=== PATIENT | male | born 1940 | race Caucasian/White ===

== ENCOUNTER 2017-09-18 07:24 | Day surgery (SDC) | payer MEDICARE ==
[~2017-09-18 07:24] MED LIST: Acetaminophen TAB* 325 MG PO PRN; Buffered Lidocaine 0.9% SYRIN* 5 ML/SYR SYRINGE INTRADERM ONE
[2017-09-18] MEDS ORDERED: Insulin LISPRO* 1 UNITS UNIT SUBCUT ONE (07:59)
[2017-09-18] MEDS ORDERED: fentaNYL* 50 MCG/ML 2 ML VIAL (100 MCG VIAL) ONE (09:06)
[2017-09-18] MEDS ORDERED: Midazolam* 1 MG/ML 2 ML VIAL (2 MG) ONE (09:06)
--- NOTE | 2017-09-18 10:09 | OP ---
DATE OF OPERATION: 09/18/2017. DATE OF : 1940. SURGEON: Shan Cabrera M.D. PREOPERATIVE DIAGNOSIS: Cataract right eye. POSTOPERATIVE DIAGNOSIS: Cataract right eye. OPERATIVE PROCEDURE: Extracapsular cataract extraction with intraocular lens implant right eye. PROCEDURE: The patient was brought to the operating room after being given 1/2% Alcaine with epineph rine drops in the preoperative area. The eye was prepped and draped in the usual sterile fashion. S terile drape and eyelid speculum were placed. Again, topical 1/2% Alcaine with epinephrine was given . A paracentesis incision was made at the 9 o'clock position with the No.75 blade. Clear cornea inc ision 2.2 x 2.2-mm was created at the 12 o'clock position starting at the anterior limbus using the 2 .2-mm keratome. The anterior chamber was irrigated with 0.4 mL of 1% non-preservative intracameral l idocaine and filled with DisCoVisc. A capsulorrhexis was completed using the cystotome and the Utrat a forceps. Hydrodissection was performed with balanced salt solution. The lens nucleus was removed w ith the Phacoemulsification handpiece without incident. Cortex was removed with the irrigation-aspir ation handpiece. The capsular bag was re-inflated using DisCoVisc and an SN60WF 18.5 implant was ins erted with the shooter. The irrigation-aspiration handpiece was used to remove all residual DisCoVis c. The eye was refilled with balanced salt solution and the wound checked and found to be watertight . Topical Maxitrol drops were given. [id number]/[facility] #: [id number]
[2017-09-18 10:22] VITALS: BP 139/73
[2017-09-18] MEDS ORDERED: Proparacaine 0.5% OPHTH.SOL* 15 ML BTL ONE (12:23)
[2017-09-18] MEDS ORDERED: Lidocaine 1% MPF* 2 ML VIAL ONE (12:23)
[2017-09-18] MEDS ORDERED: Lidocaine 2% EPI 1:200000 MPF*10-20 ML VIAL ONE (12:23)
[2017-09-18] MEDS ORDERED: Ketorolac 0.5% OPHTH (NF) 0.5 % 5 ML BTL ONE (12:23)
[2017-09-18] MEDS ORDERED: Neomycin/Polymy/Dex OPTH.SUSP* MAXITROL 0.1% 5 ML ONE (12:23)
[2017-09-18] MEDS ORDERED: Povidone Iodine 5% OPTH* 30 ML BTL ONE (12:23)
[2017-09-18] MEDS ORDERED: acetaZOLAMIDE TAB* 250 MG ONE (12:23)
[2017-09-18] MEDS ORDERED: Cyclopentolate 1% OPTH.SOL* 2 ML BTL ONE (12:23)
[2017-09-18] MEDS ORDERED: Phenylephrine 2.5% OPTH.SOL* 2 ML BTL ONE (12:23)
== END 2017-09-18 10:19 | disposition home or self-care (01) ==
LOC: OREAST 07:24
PROVIDERS: ATTEND Specialist
DX: H25.813 Combined forms of age-related cataract, bilateral (principal); H35.3132 Nonexudative age-related macular degeneration, bilateral, intermediate dry stage; H50.52 Exophoria; J43.9 Emphysema, unspecified; E78.00 Pure hypercholesterolemia, unspecified; E11.3293 Type 2 diabetes mellitus with mild nonproliferative diabetic retinopathy without macular edema, bilateral
CPT/HCPCS: A9270-GY; J2250; J3010; V2632

== ENCOUNTER 2017-09-25 06:39 | Day surgery (SDC) | payer MEDICARE ==
[2017-09-25] MEDS ORDERED: Midazolam* 1 MG/ML 2 ML VIAL (2 MG) ONE (08:00)
[2017-09-25 08:50] VITALS: BP 141/66
[2017-09-25] MEDS ORDERED: Lidocaine 1% MPF* 2 ML VIAL ONE (13:20)
[2017-09-25] MEDS ORDERED: Neomycin/Polymy/Dex OPTH.SUSP* MAXITROL 0.1% 5 ML ONE (13:20)
[2017-09-25] MEDS ORDERED: Proparacaine 0.5% OPHTH.SOL* 15 ML BTL ONE (13:20)
[2017-09-25] MEDS ORDERED: Phenylephrine 2.5% OPTH.SOL* 2 ML BTL ONE (13:20)
[2017-09-25] MEDS ORDERED: acetaZOLAMIDE TAB* 250 MG ONE (13:20)
[2017-09-25] MEDS ORDERED: Lidocaine 2% EPI 1:200000 MPF*10-20 ML VIAL ONE (13:20)
[2017-09-25] MEDS ORDERED: Povidone Iodine 5% OPTH* 30 ML BTL ONE (13:20)
[2017-09-25] MEDS ORDERED: Cyclopentolate 1% OPTH.SOL* 2 ML BTL ONE (13:20)
[2017-09-25] MEDS ORDERED: Ketorolac 0.5% OPHTH (NF) 0.5 % 5 ML BTL ONE (13:20)
--- NOTE | 2017-09-26 04:06 | OP ---
DATE OF OPERATION: 09/25/17 - [facility] DATE OF : [birth year] SURGEON: Shan Cabrera M.D. PREOPERATIVE DIAGNOSIS: Cataract, left eye. POSTOPERATIVE DIAGNOSIS: Cataract, left eye. OPERATIVE PROCEDURE: Extracapsular cataract extraction with intraocular lens implant, left eye. DESCRIPTION OF PROCEDURE: The patient was brought to the operating room after being given 1/2% Alcaine with epinephrine drops in the preoperative area. The eye was prepped and draped in the usual sterile fashion. Sterile drape and eyelid speculum were placed. Again, topical 1/2% Alcaine with epinephrine was given. A paracentesis incision was made at the 3 o'clock position with the No.75 blade. Clear cornea incision 2.2 x 2.2-mm was created at the 6 o'clock position starting at the anterior limbus using the 2.2-mm keratome. The anterior chamber was irrigated with 0.4 mL of 1% non-preservative intracameral lidocaine and filled with DisCoVisc. A capsulorrhexis was completed using the cystotome and the Utrata forceps. Hydrodissection was performed with balanced salt solution. The lens nucleus was removed with the Phacoemulsification handpiece without incident. Cortex was removed with the irrigation-aspiration handpiece. The capsular bag was re-inflated using DisCoVisc and an [id number] 19 implant was inserted with the shooter. The irrigation-aspiration handpiece was used to remove all residual DisCoVisc. The eye was refilled with balanced salt solution and the wound checked and found to be watertight. Topical Maxitrol drops were given. [id number]/[facility] #: [id number] MTDD
== END 2017-09-25 08:46 | disposition home or self-care (01) ==
LOC: OREAST 06:39
PROVIDERS: ATTEND Specialist
DX: H25.12 Age-related nuclear cataract, left eye (principal); H35.3132 Nonexudative age-related macular degeneration, bilateral, intermediate dry stage; H50.52 Exophoria; Z79.84 Long term (current) use of oral hypoglycemic drugs; E11.3293 Type 2 diabetes mellitus with mild nonproliferative diabetic retinopathy without macular edema, bilateral; J44.9 Chronic obstructive pulmonary disease, unspecified; I10 Essential (primary) hypertension; E61.1 Iron deficiency; E78.1 Pure hyperglyceridemia; E78.5 Hyperlipidemia, unspecified; M79.2 Neuralgia and neuritis, unspecified; Z68.30 Body mass index [BMI] 30.0-30.9, adult; Z85.46 Personal history of malignant neoplasm of prostate; Z85.51 Personal history of malignant neoplasm of bladder; R42 Dizziness and giddiness
CPT/HCPCS: A9270-GY; J2250; V2632

== ENCOUNTER → 2018-06-26 13:48 | Emergency (ER) | payer MEDICARE ==
[~2018-06-26 13:48] MED LIST changes: -Acetaminophen TAB* 325 MG PO PRN; +Albuterol/Ipratropium NEB.SOL* Albuterol 2.5 MG/Ipratropium 0.5 MG 3 ML INH ONE; -Buffered Lidocaine 0.9% SYRIN* 5 ML/SYR SYRINGE INTRADERM ONE; +Dexamethasone IV* 4 MG/ML 1 ML (4 MG) IV SLOW PU ONE
--- NOTE | 2018-06-26 15:28 | ED ---
Shortness of Breath - HPI Summary HPI Summary: Pt is a 77 y/o male who presents to the ED c/o SOB. He was sent here by [facility] PCP Dr. Asif for recurrent bronchitis. Pt has had COPD for the past 3 years, and uses a steroid inhaler. He notes his SOB has been worse the past 3 days, and is having difficulty with expiration. Pt also co wheezing, cough, and fatigue. This morning he also began to have chills and nausea. He denies any fever, CP, or urinary sx. Pt is on 2L O2 NC at home. He is a former smoker. - History of Current Complaint Chief Complaint: EDShortnessOfBreath Time Seen by Provider: 06/26/18 15:07 Hx Obtained From: Patient Onset/Duration: Gradual Onset, Lasting Days - 3, Worse Since Dyspnea At: Rest Aggrevating Factors: Nothing Alleviating Factors: Oxygen Associated Signs & Symptoms: Cough (Nonproductive), Wheezing - Allergy/Home Medications Allergies/Adverse Reactions: Allergies Allergy/AdvReac Type Severity Reaction Status Date / Time bee venom protein (honey bee) Allergy Anaphylatic Verified 06/26/18 14:03 Shock PMH/Surg Hx/FS Hx/Imm Hx Endocrine/Hematology History: Reports: Hx Diabetes - type 2 Cardiovascular History: Reports: Hx Angina, Hx Hypercholesterolemia, Hx Hypertension - on meds Denies: Hx Pacemaker/ICD, Other Cardiovascular Problems/Disorders Respiratory History: Reports: Hx Chronic Bronchitis, Hx Chronic Obstructive Pulmonary Disease (COPD) Denies: Hx Asthma GI History: Reports: Other GI Disorders - HERPATIC NEURALGIA History: Reports: Other Problems/Disorders - Bladder and Prostate cancer, TURP Denies: Hx Renal Disease Sensory History: Reports: Hx Cataracts - serena, Hx Contacts or Glasses Denies: Hx Hearing Aid Opthamlomology History: Reports: Hx Cataracts - serena, Hx Contacts or Glasses Neurological History: Reports: Hx Headaches, Other Neuro Impairments/Disorders - Vertigo Psychiatric History: Denies: Hx Panic Disorder - Cancer History Cancer Type, Location and Year: prostate and bladder - Surgical History Surgery Procedure, Year, and Place: PROSTATE & BLADDER CANCER WITH SURGERY. spinal cord stimulator placed and removed(DR ESTRELLA REVIEWED CT SCAN FROM AND OK'D FOR MRI). tonsillectomy. TUMORS IN BLADDER REMOVED 2-3X Hx Anesthesia Reactions: No Infectious Disease History: No Infectious Disease History: Reports: Hx Shingles - 25 years ago Denies: Traveled Outside the [place] in Last 30 Days - Family History Known Family History: Positive: Other - glaucoma - Social History Alcohol Use: None Hx Substance Use: No Substance Use Type: Reports: None Hx Tobacco Use: Yes Smoking Status (MU): Former Smoker Amount Used/How Often: pack a day for 34 yrs Review of Systems Positive: Chills, Fatigue. Negative: Fever Negative: Chest Pain Positive: Shortness Of Breath, Cough, Other - wheezing Positive: Nausea Genitourinary: Negative All Other Systems Reviewed And Are Negative: Yes Physical Exam - Summary Physical Exam Summary: Appearance: Well appearing, no pain distress Skin: warm, dry, reflects adequate perfusion Head/face: normal Eyes: EOMI, MICHELE ENT: mucous membranes moist Neck: supple, non-tender Respiratory: crackles in right upper lobe, breath sounds diminished Cardiovascular: RRR, pulses symmetrical Abdomen: non-tender, soft Bowel Sounds: present Musculoskeletal: normal, strength/ROM intact Neuro: normal, sensory motor intact, A&Ox3 Triage Information Reviewed: Yes Vital Signs On Initial Exam: Initial Vitals Temp Pulse Resp BP Pulse Ox 97.9 F 99 22 122/100 93 06/26/18 13:57 06/26/18 13:57 06/26/18 13:57 06/26/18 13:57 06/26/18 13:57 Vital Signs Reviewed: Yes Diagnostics - Vital Signs Vital Signs Temp Pulse Resp BP Pulse Ox 06/26/18 13:57 97.9 F 99 22 122/100 93 - Laboratory Result Diagrams: 06/26/18 16:08 06/26/18 16:08 Lab Statement: Any lab studies that have been ordered have been reviewed, and results considered in the medical decision making process. - EKG 15:06 Cardiac Rate: NL - 65 bpm EKG Rhythm: Sinus Rhythm ST Segment: Normal Summary of EKG Findings: Nl axis, nl intervals Course/Dx - Course Course Of Treatment: Nurse's notes reviewed. Patient with a long-standing history of COPD with exacerbation. No fever or evidence of pneumonia on x-ray. He is feeling much better with nebulized breathing treatments and IV steroids. She will continue on steroids outpatient was given antibiotic. He will follow-up with his primary care in the next few days and will inquire about home nebulizer. He does not require any additional oxygen other than his baseline 2 L. - Diagnoses Differential Diagnosis/HQI/PQRI: Positive: CHF, COPD Exacerbation, Pneumonia Provider Diagnoses: Acute exacerbation of chronic obstructive pulmonary disease (COPD) Discharge - Sign-Out/Discharge Documenting (check all that apply): Patient Departure Patient Received Moderate/Deep Sedation with Procedure: No - Discharge Plan Condition: Improved Disposition: HOME Prescriptions: Amoxicillin/Clavulanate TAB* [Augmentin TAB 875*] 875 mg PO BID #14 tab predniSONE TAB* [Deltasone TAB*] 50 mg PO DAILY #4 tab Patient Education Materials: COPD (Chronic Obstructive Pulmonary Disease) (ED) Referrals: Sravan Asif MD [Primary Care Provider] - Additional Instructions: Call your doctor first thing in the morning to schedule prompt follow-up. Also request prescribing of a nebulizer machine and albuterol or DuoNeb. Humidifier at the bedside. Return with increased oxygen need, shortness of breath, fever, worse or other concerns as discussed. - Billing Disposition and Condition Condition: IMPROVED Disposition: Home - Attestation Statements Document Initiated by Luz Elenaibe: Yes Documenting Scribe: Shelley Augustin Provider For Whom Jd is Documenting (Include Credential): Niall Vale MD Scribe Attestation: Shelley Georges scribed for Niall Vale MD on 06/26/18 at 1751. Scribe Documentation Reviewed: Yes Provider Attestation: The documentation as recorded by the Shelley dixon accurately reflects the service I personally performed and the decisions made by , Niall Vale MD Status of Scribe Document: Viewed
[2018-06-26 15:44] LABS: Influenza A Molecular NEGATIVE (Negative); Influenza B Molecular NEGATIVE (Negative)
[2018-06-26 16:19] LABS: ABS Basophils 0.1 10^3/ul (0-0.2); ABS Eosinophils 0.3 10^3/ul (0-0.6); ABS Lymphocytes 1.2 10^3/ul (1.0-4.8); ABS Monocytes 0.8 10^3/ul (0-0.8); ABS Neutrophils 6.8 10^3/ul (1.5-7.7); ABS Nucleated RBC 0 10^3/ul; Eosinophil % 3.1 %; Hematocrit 36 % (42-52); Hemoglobin 11.8 g/dl (14.0-18.0); Lymphocyte % 13.1 %; Mean Corpuscular HGB Conc 33 g/dl (31-36); Mean Corpuscular Hemoglobin 30 pg (27-31); Mean Corpuscular Volume 90 fL (80-94); Mean Platelet Volume 7.9 fL (7.4-10.4); Nucleated Red Blood Cells % 0.1; Platelet Count 227 10^3/ul (150-450); Red Blood Count 3.98 10^6/ul (4.00-5.40); Red Cell Distribution Width 15 % (10.5-15); White Blood Count 9.1 10^3/ul (3.5-10.8)
[2018-06-26 16:28] LABS: INR 0.98 (0.77-1.02)
[2018-06-26 16:40] LABS: Albumin 4.3 g/dL (3.2-5.2); Albumin/Globulin Ratio 1.6 (1-3); BUN/Creatinine Ratio 17.8 (8-20); C Reactive Protein 19.39 mg/L (<8.01); Calcium 9.2 mg/dL (8.6-10.3); EGFR African American 86.9 (>60); EGFR Non-African American 71.8 (>60); Globulin 2.7 g/dL (2-4); Total Bilirubin 0.4 mg/dL (0.2-1.0)
[2018-06-26 16:41] LABS: Potassium 5.4 mmol/L (3.5-5.0)
[2018-06-26 17:42] VITALS: BP 134/61
== END | disposition home or self-care (01) ==
LOC: ED 13:48
DX: J44.9 Chronic obstructive pulmonary disease, unspecified (principal); R05 Cough; R06.2 Wheezing; E11.9 Type 2 diabetes mellitus without complications; I10 Essential (primary) hypertension; Z87.891 Personal history of nicotine dependence; R11.0 Nausea
CPT/HCPCS: 36415; 71046; 80053; 82803; 83605; 83880; 84484; 85025; 85610; 86140; 87040; 93005; 96374; 99283; A9270-GY; J1100

== ENCOUNTER 2020-04-22 12:09 | Inpatient (IN) ==
[2020-04-22 12:58] LABS: ABS Basophils 0.1 10^3/ul (0-0.2); ABS Lymphocytes 0.8 10^3/ul (1.0-4.8); ABS Neutrophils 11.2 10^3/ul (1.5-7.7); Eosinophil % 0.2 %; Hematocrit 39 % (42-52); Hemoglobin 12.7 g/dL (14.0-18.0); Lymphocyte % 5.7 %; Mean Corpuscular HGB Conc 33 g/dL (31-36); Mean Corpuscular Hemoglobin 29 pg (27-31); Mean Corpuscular Volume 90 fL (80-94); Mean Platelet Volume 7.6 fL (7.4-10.4); Platelet Count 274 10^3/uL (150-450); Red Blood Count 4.31 10^6 /uL (4.18-5.48); Red Cell Distribution Width 16 % (10-15); White Blood Count 13.1 10^3/uL (3.5-10.8)
[2020-04-22 13:13] LABS: Albumin 4.1 g/dL (3.2-5.2); Albumin/Globulin Ratio 1.7 (1-3); C Reactive Protein 74.7 mg/L (<8.01); EGFR African American 27.8 (>60); Globulin 2.4 g/dL (2-4); Total Bilirubin 0.4 mg/dL (0.2-1.0); Total Protein 6.5 g/dL (6.4-8.9)
[2020-04-22 13:14] LABS: Troponin I 0.01 ng/mL (<0.03)
[2020-04-22 13:16] LABS: Potassium 5.2 mmol/L (3.5-5.0)
[2020-04-22 13:23] LABS: INR 1.07 (0.82-1.09)
[2020-04-22 13:24] LABS: Activated Partial Thrombo Time 28.2 seconds (26.0-38.0)
[2020-04-22] MEDS ORDERED: NS 0.9% 1000 ml BAG 1,000 ML IV ONE ×2 (13:45→15:01)
[2020-04-22 14:21] LABS: TSH Ultra Thyroid Stim Horm 0.95 mcIU/mL (0.34-5.60)
[2020-04-22 14:48] LABS: Influenza A Molecular Negative (Negative); Influenza B Molecular Negative (Negative)
[2020-04-22] MEDS ORDERED: cefTRIAXone 1 gm/50 mL NS BAG 1 GM/50 ML BAG IV ONE (15:01)
[2020-04-22 15:35] LABS: Urine Appearance Cloudy; Urine Bilirubin Negative (Negative); Urine Blood 3+ (Negative); Urine Color Yellow; Urine Glucose Negative (Negative); Urine Ketones Negative (Negative); Urine Nitrite Positive (Negative); Urine Protein 1+(30 mg/dL) (Negative); Urine Specific Gravity 1.016 (1.010-1.030); Urine Urobilinogen Negative (Negative)
[2020-04-22 15:42] LABS: Urine Bacteria 3+ (Absent); Urine Red Blood Cell Absent (Absent); Urine White Blood Cell 3+(>20/hpf) (Absent)
[2020-04-22] MEDS ORDERED: Metoprolol Tartrate 5 mg VIAL 5 ml VIAL (1 mg/ml) IV ONE (19:19)
[2020-04-22] MEDS ORDERED: Enoxaparin 30 MG/0.3 ML SYR SUBCUT SCH (21:00)
[2020-04-22] MEDS ORDERED: Gabapentin 600 mg TAB (NF) PO SCH (22:00)
[2020-04-22] MEDS ORDERED: Dextrose 50% Syringe 50 ml 25 GM/50 ML SYRINGE IV PUSH PRN (22:48)
[2020-04-22] MEDS: NS 0.9% 1000 ml BAG 1,000 ML IV SCH (23:19)
[2020-04-22] MEDS: Heparin DRIP 25,000 UNITS BAG 25,000 UNITS/500 ML BAG IV SCH (23:33)
[2020-04-22 23:41] LABS: ABS Eosinophils 0.1 10^3/ul (0-0.6); ABS Lymphocytes 0.8 10^3/ul (1.0-4.8); ABS Monocytes 1.1 10^3/ul (0-0.8); ABS Neutrophils 11.3 10^3/ul (1.5-7.7); Eosinophil % 0.5 %; Hematocrit 41 % (42-52); Hemoglobin 13.3 g/dL (14.0-18.0); Lymphocyte % 6.3 %; Mean Corpuscular HGB Conc 33 g/dL (31-36); Mean Corpuscular Hemoglobin 30 pg (27-31); Mean Corpuscular Volume 91 fL (80-94); Mean Platelet Volume 7.8 fL (7.4-10.4); Platelet Count 229 10^3/uL (150-450); Red Blood Count 4.48 10^6 /uL (4.18-5.48); Red Cell Distribution Width 15 % (10-15); White Blood Count 13.3 10^3/uL (3.5-10.8)
[2020-04-22] MEDS ORDERED: Heparin 5000 UNITS/ML 1 mL VIAL IV SCH (23:45)
[2020-04-22 23:57] LABS: EGFR African American 40.2 (>60); EGFR Non-African American 33.2 (>60)
[2020-04-23 00:26] LABS: BUN/Creatinine Ratio 24.5 (8-20); Calcium 8.8 mg/dL (8.6-10.3); EGFR African American 42.2 (>60); EGFR Non-African American 34.9 (>60); Potassium 4.9 mmol/L (3.5-5.0)
[2020-04-23 03:53] LABS: ABS Basophils 0.1 10^3/ul (0-0.2); ABS Eosinophils 0.1 10^3/ul (0-0.6); ABS Lymphocytes 1.4 10^3/ul (1.0-4.8); ABS Monocytes 0.9 10^3/ul (0-0.8); Eosinophil % 0.9 %; Hematocrit 37 % (42-52); Lymphocyte % 12.5 %; Mean Corpuscular HGB Conc 33 g/dL (31-36); Mean Corpuscular Hemoglobin 29 pg (27-31); Mean Corpuscular Volume 90 fL (80-94); Mean Platelet Volume 7.8 fL (7.4-10.4); Platelet Count 200 10^3/uL (150-450); Red Blood Count 4.13 10^6 /uL (4.18-5.48); Red Cell Distribution Width 15 % (10-15); White Blood Count 11.5 10^3/uL (3.5-10.8)
[2020-04-23 04:09] LABS: Albumin 3.5 g/dL (3.2-5.2); Albumin/Globulin Ratio 1.5 (1-3); BUN/Creatinine Ratio 29.5 (8-20); Calcium 8.4 mg/dL (8.6-10.3); EGFR African American 56.5 (>60); EGFR Non-African American 46.7 (>60); Globulin 2.3 g/dL (2-4); Potassium 4.7 mmol/L (3.5-5.0); Total Bilirubin 0.6 mg/dL (0.2-1.0); Total Protein 5.8 g/dL (6.4-8.9)
[2020-04-23] MEDS: Mometasone/Formoter 200/5 MDI INH SCH ×2 (09:18→19:24)
[2020-04-23] MEDS: Aspirin EC 81 mg TAB.EC (enteric coated) PO SCH (10:02)
[2020-04-23] MEDS: Cefepime 2 GM in Dextrose 2 GM/50 ML BAG IV SCH (12:22)
[2020-04-23] MEDS: SPIRIVA Respimat (tiotropium) 2.5 mcg/inh Inhaler INH SCH (12:39)
[2020-04-23] MEDS ORDERED: NS 0.9% 500 ml BAG 500 ML IV ONE (13:49)
[2020-04-23] MEDS: NS 0.9% 1000 ml BAG 1,000 ML IV SCH (14:06)
[2020-04-23] MEDS ORDERED: cefTRIAXone 1 gm/50 mL NS BAG 1 GM/50 ML BAG IVPB SCH (15:30)
[2020-04-23] MEDS: Heparin DRIP 25,000 UNITS BAG 25,000 UNITS/500 ML BAG IV SCH (22:52)
[2020-04-23] MEDS ORDERED: Benzocaine/Menthol LOZ PO PRN (23:48)
[2020-04-24] MEDS: NS 0.9% 1000 ml BAG 1,000 ML IV SCH (03:03)
[2020-04-24 06:52] LABS: ABS Basophils 0.1 10^3/ul (0-0.2); ABS Eosinophils 0.4 10^3/ul (0-0.6); ABS Lymphocytes 1.4 10^3/ul (1.0-4.8); ABS Monocytes 0.9 10^3/ul (0-0.8); ABS Neutrophils 5.7 10^3/ul (1.5-7.7); Eosinophil % 4.3 %; Hematocrit 35 % (42-52); Hemoglobin 11.6 g/dL (14.0-18.0); Lymphocyte % 16.4 %; Mean Corpuscular HGB Conc 34 g/dL (31-36); Mean Corpuscular Hemoglobin 30 pg (27-31); Mean Corpuscular Volume 89 fL (80-94); Mean Platelet Volume 7.9 fL (7.4-10.4); Platelet Count 204 10^3/uL (150-450); Red Blood Count 3.91 10^6 /uL (4.18-5.48); Red Cell Distribution Width 15 % (10-15); White Blood Count 8.4 10^3/uL (3.5-10.8)
[2020-04-24 07:11] LABS: BUN/Creatinine Ratio 24.8 (8-20); Calcium 8.6 mg/dL (8.6-10.3); EGFR African American 86.4 (>60); EGFR Non-African American 71.4 (>60); Potassium 4.2 mmol/L (3.5-5.0)
[2020-04-24] MEDS: Aspirin EC 81 mg TAB.EC (enteric coated) PO SCH (07:39)
[2020-04-24] MEDS: Mometasone/Formoter 200/5 MDI INH SCH ×2 (08:07→20:16)
[2020-04-24] MEDS: SPIRIVA Respimat (tiotropium) 2.5 mcg/inh Inhaler INH SCH (08:07)
[2020-04-24] MEDS ORDERED: Perflutren Lipid Microsphere 3 ML VIAL ONE (08:48)
[2020-04-24] MEDS: Cefepime 2 GM in Dextrose 2 GM/50 ML BAG IV SCH ×2 (12:08)
[2020-04-24] MEDS ORDERED: Iodixanol (CONTRAST) 320 MG/ML 100 ML SDV IV ONE (12:57)
[2020-04-24] MEDS: Enoxaparin 80 MG/0.8 ML SYR SUBCUT SCH (18:33)
[2020-04-25] MEDS: Enoxaparin 80 MG/0.8 ML SYR SUBCUT SCH ×2 (05:18→17:21)
[2020-04-25 05:26] LABS: ABS Basophils 0.1 10^3/ul (0-0.2); ABS Eosinophils 0.4 10^3/ul (0-0.6); ABS Lymphocytes 1.4 10^3/ul (1.0-4.8); ABS Monocytes 0.7 10^3/ul (0-0.8); ABS Neutrophils 4.7 10^3/ul (1.5-7.7); Hematocrit 35 % (42-52); Hemoglobin 11.9 g/dL (14.0-18.0); Lymphocyte % 18.7 %; Mean Corpuscular HGB Conc 34 g/dL (31-36); Mean Corpuscular Hemoglobin 30 pg (27-31); Mean Corpuscular Volume 87 fL (80-94); Mean Platelet Volume 8.1 fL (7.4-10.4); Platelet Count 240 10^3/uL (150-450); Red Blood Count 4.03 10^6 /uL (4.18-5.48); Red Cell Distribution Width 15 % (10-15); White Blood Count 7.3 10^3/uL (3.5-10.8)
[2020-04-25] MEDS: cefTRIAXone 1 gm/50 mL NS BAG 1 GM/50 ML BAG IVPB SCH (08:20)
[2020-04-25] MEDS: Mometasone/Formoter 200/5 MDI INH SCH ×2 (08:26→19:50)
[2020-04-25] MEDS: SPIRIVA Respimat (tiotropium) 2.5 mcg/inh Inhaler INH SCH (08:27)
[2020-04-26] MEDS: Enoxaparin 80 MG/0.8 ML SYR SUBCUT SCH (05:54)
[2020-04-26] MEDS: cefTRIAXone 1 gm/50 mL NS BAG 1 GM/50 ML BAG IVPB SCH (08:01)
[2020-04-26] MEDS: SPIRIVA Respimat (tiotropium) 2.5 mcg/inh Inhaler INH SCH (08:16)
[2020-04-26] MEDS: Mometasone/Formoter 200/5 MDI INH SCH (08:17)
[2020-04-26 11:25] VITALS: BP 140/58
== END 2020-04-26 15:15 | disposition home or self-care (01) | DRG 871 ==
LOC: ED 12:09 → MEDTELE 22:15
PROVIDERS: ADMIT Hospitalist; ATTEND Internal Medicine

== ENCOUNTER 2020-12-06 12:41 | Inpatient (IN) ==
[2020-12-06 13:16] LABS: Hematocrit 41 % (42-52); Hemoglobin 13.5 g/dL (14.0-18.0); Mean Corpuscular HGB Conc 33 g/dL (31-36); Mean Corpuscular Hemoglobin 29 pg (27-31); Mean Corpuscular Volume 89 fL (80-94); Mean Platelet Volume 7.7 fL (7.4-10.4); Platelet Count 273 10^3/uL (150-450); Red Blood Count 4.61 10^6 /uL (4.18-5.48); Red Cell Distribution Width 15 % (10-15); White Blood Count 14.6 10^3/uL (3.5-10.8)
[2020-12-06] MEDS ORDERED: NS 0.9% 1000 ml BAG 1,000 ML IV ONE (13:16)
[2020-12-06 13:29] LABS: INR 1.15 (0.86-1.15)
[2020-12-06 13:35] LABS: Troponin I 0.01 ng/mL (<0.03)
[2020-12-06 13:37] LABS: Albumin/Globulin Ratio 1.1 (1-3); C Reactive Protein 188.46 mg/L (<8.01); Calcium 9.6 mg/dL (8.6-10.3); EGFR African American 72.8 (>60); EGFR Non-African American 60.1 (>60); Globulin 3.5 g/dL (2-4); Magnesium 1.8 mg/dL (1.9-2.7); Potassium 4.4 mmol/L (3.5-5.0); Total Bilirubin 0.5 mg/dL (0.2-1.0); Total Protein 7.5 g/dL (6.4-8.9)
[2020-12-06 13:49] LABS: ABS Basophils 0.1 10^3/ul (0-0.2); ABS Eosinophils 0.2 10^3/ul (0-0.6); ABS Monocytes 0.9 10^3/ul (0-0.8); ABS Neutrophils 12.4 10^3/ul (1.5-7.7); Eosinophil % 1.2 %; Lymphocyte % 7.1 %
[2020-12-06] MEDS ORDERED: Magnesium Sulfate 2 gm BAG 2 GM/50 ML BAG IVPB ONE (13:54)
[2020-12-06] MEDS ORDERED: Piperacillin/Tazobac ADVAN 3.375 GM in NS 0.9% 100 ml BAG 100 ML IV ONE (13:59)
[2020-12-06 14:12] LABS: Urine Appearance Turbid; Urine Bilirubin Negative (Negative); Urine Blood 2+ (Negative); Urine Color Yellow; Urine Glucose Negative (Negative); Urine Ketones Negative (Negative); Urine Nitrite Positive (Negative); Urine Protein 2+(100 mg/dL) (Negative); Urine Specific Gravity 1.014 (1.002-1.030); Urine Urobilinogen Negative (Negative)
[2020-12-06 14:26] LABS: Urine Bacteria Absent (Absent); Urine Red Blood Cell 3+(>10/hpf) (Absent); Urine Squamous Epithelial Cell Present (Absent); Urine White Blood Cell 3+(>20/hpf) (Absent)
[2020-12-06 14:34] LABS: TSH Ultra Thyroid Stim Horm 0.77 mcIU/mL (0.34-5.60)
[2020-12-06] MEDS ORDERED: Piperacillin/Tazobac 3.375 GM BAG ONE (14:41)
[2020-12-06] MEDS ORDERED: NS 0.9% IV ONE (15:16)
[2020-12-06] MEDS ORDERED: Ondansetron 4 mg VIAL 2 MG/ML 2 ml VIAL IV PRN (16:00)
[2020-12-06] MEDS ORDERED: Magnesium Hydroxide LIQ 30 ML UDC PO PRN (16:00)
[2020-12-06] MEDS ORDERED: Albuterol HFA INHALER 8 gm MDI INH PRN (16:02)
[2020-12-06] MEDS ORDERED: Albuterol 2.5mg/3 ml (0.083%) NEB.SOLN INH PRN (16:02)
[2020-12-06] MEDS ORDERED: Dextrose 50% Syringe 50 ml 25 GM/50 ML SYRINGE IV PUSH PRN (16:04)
[2020-12-06] MEDS: cefTRIAXone 1 gm/50 mL NS BAG 1 GM/50 ML BAG IVPB SCH (23:53)
[2020-12-07 05:46] LABS: ABS Basophils 0.1 10^3/ul (0-0.2); ABS Eosinophils 0.3 10^3/ul (0-0.6); ABS Lymphocytes 1.5 10^3/ul (1.0-4.8); ABS Monocytes 0.6 10^3/ul (0-0.8); ABS Neutrophils 5.5 10^3/ul (1.5-7.7); Eosinophil % 4.2 %; Hematocrit 33 % (42-52); Hemoglobin 11.1 g/dL (14.0-18.0); Lymphocyte % 19.1 %; Mean Corpuscular HGB Conc 34 g/dL (31-36); Mean Corpuscular Hemoglobin 30 pg (27-31); Mean Corpuscular Volume 88 fL (80-94); Mean Platelet Volume 7.4 fL (7.4-10.4); Platelet Count 240 10^3/uL (150-450); Red Blood Count 3.73 10^6 /uL (4.18-5.48); Red Cell Distribution Width 15 % (10-15)
[2020-12-07 06:04] LABS: Calcium 8.6 mg/dL (8.6-10.3); EGFR African American 88.2 (>60); EGFR Non-African American 72.9 (>60); Potassium 4.3 mmol/L (3.5-5.0)
[2020-12-07] MEDS: Mometasone/Formoter 200/5 MDI INH SCH ×2 (10:14→21:59)
[2020-12-07] MEDS: cefTRIAXone 1 gm/50 mL NS BAG 1 GM/50 ML BAG IVPB SCH (21:20)
[2020-12-08] MEDS: Mometasone/Formoter 200/5 MDI INH SCH ×2 (08:09→20:05)
[2020-12-08] MEDS ORDERED: Piperacillin/Tazobac ADVAN 3.375 GM in NS 0.9% 100 ml BAG 100 ML IV ONE (09:18)
[2020-12-08] MEDS ORDERED: Zosyn per Pharmacy NOTE FOLLOW UP SCH (10:00)
[2020-12-08] MEDS: ZOSYN 3.375 GM Q8H per EXTENDED INFUSION IV SCH ×2 (13:58→23:11)
[2020-12-09] MEDS: ZOSYN 3.375 GM Q8H per EXTENDED INFUSION IV SCH ×2 (06:27→14:29)
[2020-12-09] MEDS: Mometasone/Formoter 200/5 MDI INH SCH (10:05)
[2020-12-09 16:45] VITALS: BP 141/66
== END 2020-12-09 16:40 | disposition home or self-care (01) | DRG 872 ==
LOC: MED 12:41 → ED 12:41 → MED 17:47
PROVIDERS: ADMIT Hospitalist; ATTEND Internal Medicine

== ENCOUNTER 2020-12-14 11:31 | Inpatient (IN) ==
[2020-12-14] MEDS ORDERED: NS 0.9% 1000 ml BAG 1,000 ML IV ONE ×3 (11:38→13:43)
[2020-12-14 12:00] LABS: ABS Basophils 0.1 10^3/ul (0-0.2); ABS Eosinophils 0.5 10^3/ul (0-0.6); ABS Lymphocytes 1.3 10^3/ul (1.0-4.8); ABS Monocytes 0.6 10^3/ul (0-0.8); ABS Neutrophils 8.3 10^3/ul (1.5-7.7); Hematocrit 41 % (42-52); Hemoglobin 13.4 g/dL (14.0-18.0); Lymphocyte % 12.2 %; Mean Corpuscular HGB Conc 33 g/dL (31-36); Mean Corpuscular Hemoglobin 29 pg (27-31); Mean Corpuscular Volume 88 fL (80-94); Mean Platelet Volume 7.3 fL (7.4-10.4); Platelet Count 452 10^3/uL (150-450); Red Blood Count 4.62 10^6 /uL (4.18-5.48); Red Cell Distribution Width 15 % (10-15); White Blood Count 10.9 10^3/uL (3.5-10.8)
[2020-12-14 12:18] LABS: Albumin 3.9 g/dL (3.2-5.2); Albumin/Globulin Ratio 1.2 (1-3); Calcium 9.2 mg/dL (8.6-10.3); EGFR African American 32.7 (>60); Globulin 3.3 g/dL (2-4); Potassium 4.9 mmol/L (3.5-5.0); Total Bilirubin 0.3 mg/dL (0.2-1.0); Total Protein 7.2 g/dL (6.4-8.9)
[2020-12-14 12:19] LABS: Activated Partial Thrombo Time 22.3 seconds (26.0-38.0); INR 1.1 (0.86-1.15)
[2020-12-14 12:31] LABS: Influenza A Molecular Negative (Negative); Influenza B Molecular Negative (Negative)
[2020-12-14] MEDS ORDERED: Piperacillin/Tazobac ADVAN 3.375 GM in NS 0.9% 100 ml BAG 100 ML IV ONE (12:32)
[2020-12-14 13:16] LABS: Urine Appearance Cloudy; Urine Bilirubin Negative (Negative); Urine Blood Negative (Negative); Urine Color Yellow; Urine Glucose Negative (Negative); Urine Ketones Negative (Negative); Urine Nitrite Negative (Negative); Urine Protein 1+(30 mg/dL) (Negative); Urine Urobilinogen Negative (Negative)
[2020-12-14 13:23] LABS: Urine Bacteria Absent (Absent); Urine Red Blood Cell Trace(0-2/hpf) (Absent); Urine Squamous Epithelial Cell Present (Absent); Urine White Blood Cell 1+(6-10/hpf) (Absent)
[2020-12-14 14:37] LABS: C Reactive Protein 56.42 mg/L (<8.01)
[2020-12-14] MEDS ORDERED: Dextrose 50% Syringe 50 ml 25 GM/50 ML SYRINGE IV PUSH PRN (15:51)
[2020-12-14] MEDS ORDERED: Albuterol 2.5mg/3 ml (0.083%) NEB.SOLN INH PRN (16:14)
[2020-12-14] MEDS ORDERED: Meropenem 1 GM PREMIX 1 GM/50 ML BAG IV ONE (16:30)
[2020-12-14] MEDS: Mometasone/Formoter 200/5 MDI INH SCH (19:39)
[2020-12-14] MEDS: Meropenem 1 GM PREMIX(*) 1 GM/50 ML BAG IV SCH (21:15)
[2020-12-15 06:50] LABS: Calcium 8.3 mg/dL (8.6-10.3); EGFR African American 75.7 (>60); EGFR Non-African American 62.6 (>60); Potassium 4.5 mmol/L (3.5-5.0)
[2020-12-15 06:59] LABS: ABS Eosinophils 0.5 10^3/ul (0-0.6); ABS Lymphocytes 2.1 10^3/ul (1.0-4.8); ABS Monocytes 0.6 10^3/ul (0-0.8); Eosinophil % 7.1 %; Hematocrit 35 % (42-52); Hemoglobin 11.5 g/dL (14.0-18.0); Mean Corpuscular HGB Conc 33 g/dL (31-36); Mean Corpuscular Hemoglobin 29 pg (27-31); Mean Corpuscular Volume 90 fL (80-94); Mean Platelet Volume 7.2 fL (7.4-10.4); Platelet Count 359 10^3/uL (150-450); Red Blood Count 3.94 10^6 /uL (4.18-5.48); Red Cell Distribution Width 15 % (10-15); White Blood Count 7.3 10^3/uL (3.5-10.8)
[2020-12-15] MEDS: Aspirin EC 81 mg TAB.EC (enteric coated) PO SCH (08:51)
[2020-12-15] MEDS: Meropenem 1 GM PREMIX(*) 1 GM/50 ML BAG IV SCH (08:51)
[2020-12-15] MEDS: NFT: ICOSAPENT ETHYL 1 GM CAPSULE (NF) PO SCH ×2 (08:53→17:04)
[2020-12-15] MEDS ORDERED: Fluticasone/Vilanterol MDI(NF) 200/25 MDI INH SCH (09:00)
[2020-12-15] MEDS ORDERED: Zosyn per Pharmacy NOTE FOLLOW UP SCH (10:00)
[2020-12-15] MEDS ORDERED: Piperacillin/Tazobac ADVAN 3.375 GM in NS 0.9% 100 ml BAG 100 ML IV ONE (10:30)
[2020-12-15] MEDS: Mometasone/Formoter 200/5 MDI INH SCH ×2 (10:40→19:30)
[2020-12-15] MEDS ORDERED: ZOSYN 3.375 GM x ONE DOSE over 30 miuntes IV (17:00)
[2020-12-15] MEDS: Enoxaparin 40 MG/0.4 ML SYR SUBCUT SCH (21:27)
[2020-12-15] MEDS: ZOSYN 3.375 GM Q8H per EXTENDED INFUSION IV SCH (21:28)
[2020-12-16] MEDS: Mometasone/Formoter 200/5 MDI INH SCH ×2 (07:24→22:15)
[2020-12-16] MEDS: ZOSYN 3.375 GM Q8H per EXTENDED INFUSION IV SCH (07:46)
[2020-12-16] MEDS: NFT: ICOSAPENT ETHYL 1 GM CAPSULE (NF) PO SCH ×2 (07:46→16:22)
[2020-12-16] MEDS: Aspirin EC 81 mg TAB.EC (enteric coated) PO SCH (09:20)
[2020-12-16] MEDS: Amoxicillin/Clavul 875/125 TAB (Augmentin 875 tab) PO SCH ×2 (09:21→20:56)
[2020-12-16] MEDS: Enoxaparin 40 MG/0.4 ML SYR SUBCUT SCH (20:57)
[2020-12-17] MEDS: NFT: ICOSAPENT ETHYL 1 GM CAPSULE (NF) PO SCH ×2 (07:51→16:37)
[2020-12-17] MEDS: Amoxicillin/Clavul 875/125 TAB (Augmentin 875 tab) PO SCH ×2 (08:02→20:10)
[2020-12-17] MEDS: Aspirin EC 81 mg TAB.EC (enteric coated) PO SCH (08:03)
[2020-12-17 08:44] LABS: Calcium 8.7 mg/dL (8.6-10.3); EGFR African American 89.3 (>60); EGFR Non-African American 73.8 (>60); Magnesium 1.5 mg/dL (1.9-2.7); Potassium 4.4 mmol/L (3.5-5.0)
[2020-12-17 08:47] LABS: ABS Eosinophils 0.7 10^3/ul (0-0.6); ABS Lymphocytes 1.6 10^3/ul (1.0-4.8); ABS Monocytes 0.6 10^3/ul (0-0.8); ABS Neutrophils 9.9 10^3/ul (1.5-7.7); Eosinophil % 5.5 %; Hematocrit 40 % (42-52); Hemoglobin 13.2 g/dL (14.0-18.0); Lymphocyte % 12.6 %; Mean Corpuscular HGB Conc 33 g/dL (31-36); Mean Corpuscular Hemoglobin 29 pg (27-31); Mean Corpuscular Volume 88 fL (80-94); Mean Platelet Volume 7.1 fL (7.4-10.4); Nucleated Red Blood Cells % 0.1; Platelet Count 377 10^3/uL (150-450); Red Blood Count 4.54 10^6 /uL (4.18-5.48); Red Cell Distribution Width 15 % (10-15); White Blood Count 12.8 10^3/uL (3.5-10.8)
[2020-12-17] MEDS ORDERED: DULAGLUTIDE 1.5 MG/0.5 ML SUBCUT SCH (10:00)
[2020-12-17] MEDS ORDERED: Magnesium Sulfate IV 3 GM in NS 0.9% 100 ml BAG 100 ML IVPB ONE (10:30)
[2020-12-17] MEDS: Mometasone/Formoter 200/5 MDI INH SCH ×2 (14:00→20:48)
[2020-12-17] MEDS: Enoxaparin 40 MG/0.4 ML SYR SUBCUT SCH (20:09)
[2020-12-18] MEDS: Mometasone/Formoter 200/5 MDI INH SCH ×2 (07:54→19:19)
[2020-12-18] MEDS: Amoxicillin/Clavul 875/125 TAB (Augmentin 875 tab) PO SCH (08:27)
[2020-12-18] MEDS: Aspirin EC 81 mg TAB.EC (enteric coated) PO SCH (08:27)
[2020-12-18] MEDS: NFT: ICOSAPENT ETHYL 1 GM CAPSULE (NF) PO SCH (08:30)
[2020-12-18] MEDS: Albuterol HFA INHALER 8 gm MDI INH PRN ×2 (14:42→19:19)
[2020-12-18] MEDS: Enoxaparin 40 MG/0.4 ML SYR SUBCUT SCH (21:55)
[2020-12-19 06:32] LABS: ABS Basophils 0.1 10^3/ul (0-0.2); ABS Eosinophils 1.3 10^3/ul (0-0.6); ABS Lymphocytes 1.8 10^3/ul (1.0-4.8); ABS Monocytes 0.9 10^3/ul (0-0.8); ABS Neutrophils 12.6 10^3/ul (1.5-7.7); Hematocrit 36 % (42-52); Hemoglobin 11.5 g/dL (14.0-18.0); Lymphocyte % 10.9 %; Mean Corpuscular HGB Conc 32 g/dL (31-36); Mean Corpuscular Hemoglobin 29 pg (27-31); Mean Corpuscular Volume 89 fL (80-94); Mean Platelet Volume 7.7 fL (7.4-10.4); Nucleated Red Blood Cells % 0.1; Platelet Count 395 10^3/uL (150-450); Red Blood Count 4.01 10^6 /uL (4.18-5.48); Red Cell Distribution Width 15 % (10-15); White Blood Count 16.7 10^3/uL (3.5-10.8)
[2020-12-19 06:47] LABS: Calcium 8.8 mg/dL (8.6-10.3); EGFR African American 81.5 (>60); EGFR Non-African American 67.4 (>60); Magnesium 1.6 mg/dL (1.9-2.7); Potassium 4.6 mmol/L (3.5-5.0)
[2020-12-19] MEDS ORDERED: Magnesium Sulfate 2 gm BAG 2 GM/50 ML BAG IVPB ONE (07:37)
[2020-12-19] MEDS ORDERED: Lactated Ringers 1000 ml BAG 1,000 ML IV ONE (07:37)
[2020-12-19] MEDS: Aspirin EC 81 mg TAB.EC (enteric coated) PO SCH (08:38)
[2020-12-19] MEDS: Mometasone/Formoter 200/5 MDI INH SCH ×2 (09:12→19:25)
[2020-12-19] MEDS: Enoxaparin 40 MG/0.4 ML SYR SUBCUT SCH (20:18)
[2020-12-19 21:19] LABS: Urine Appearance Clear; Urine Bilirubin Negative (Negative); Urine Blood Negative (Negative); Urine Color Yellow; Urine Glucose Negative (Negative); Urine Ketones Negative (Negative); Urine Nitrite Negative (Negative); Urine Protein Negative (Negative); Urine Specific Gravity 1.016 (1.002-1.030); Urine Urobilinogen Negative (Negative)
[2020-12-20 07:51] VITALS: BP 123/59
[2020-12-20] MEDS: Albuterol HFA INHALER 8 gm MDI INH PRN (08:09)
[2020-12-20] MEDS: Mometasone/Formoter 200/5 MDI INH SCH (08:09)
[2020-12-20] MEDS: Aspirin EC 81 mg TAB.EC (enteric coated) PO SCH (08:46)
[2020-12-20 08:54] LABS: ABS Basophils 0.1 10^3/ul (0-0.2); ABS Eosinophils 1.6 10^3/ul (0-0.6); ABS Lymphocytes 1.9 10^3/ul (1.0-4.8); ABS Monocytes 0.9 10^3/ul (0-0.8); Hematocrit 34 % (42-52); Hemoglobin 11.4 g/dL (14.0-18.0); Lymphocyte % 16.7 %; Mean Corpuscular HGB Conc 33 g/dL (31-36); Mean Corpuscular Hemoglobin 29 pg (27-31); Mean Corpuscular Volume 88 fL (80-94); Mean Platelet Volume 7.5 fL (7.4-10.4); Platelet Count 367 10^3/uL (150-450); Red Blood Count 3.93 10^6 /uL (4.18-5.48); Red Cell Distribution Width 16 % (10-15); White Blood Count 11.6 10^3/uL (3.5-10.8)
[2020-12-20 09:12] LABS: Calcium 8.9 mg/dL (8.6-10.3); EGFR African American 87.2 (>60); EGFR Non-African American 72.1 (>60); Magnesium 1.7 mg/dL (1.9-2.7); Potassium 4.4 mmol/L (3.5-5.0)
[2020-12-20] MEDS ORDERED: Magnesium Sulfate 2 gm BAG 2 GM/50 ML BAG IVPB ONE (09:19)
== END 2020-12-20 11:35 | DRG 683 ==
LOC: ED 11:31 → MED 15:35
PROVIDERS: ADMIT Internal Medicine; ATTEND Student in an Organized Health Care Education/Training Program

== ENCOUNTER 2021-01-02 11:55 | Inpatient (IN) ==
[2021-01-02] MEDS ORDERED: Lactated Ringers 1000 ml BAG 1,000 ML IV ONE ×2 (12:45→14:36)
[2021-01-02 12:59] LABS: ABS Basophils 0.1 10^3/ul (0-0.2); ABS Eosinophils 0.1 10^3/ul (0-0.6); ABS Lymphocytes 0.7 10^3/ul (1.0-4.8); ABS Monocytes 1.2 10^3/ul (0-0.8); ABS Neutrophils 8.8 10^3/ul (1.5-7.7); Hematocrit 35 % (42-52); Hemoglobin 11.4 g/dL (14.0-18.0); Lymphocyte % 6.1 %; Mean Corpuscular HGB Conc 33 g/dL (31-36); Mean Corpuscular Hemoglobin 28 pg (27-31); Mean Corpuscular Volume 86 fL (80-94); Mean Platelet Volume 7.2 fL (7.4-10.4); Platelet Count 426 10^3/uL (150-450); Red Blood Count 4.01 10^6 /uL (4.18-5.48); Red Cell Distribution Width 15 % (10-15); White Blood Count 10.8 10^3/uL (3.5-10.8)
[2021-01-02 13:11] LABS: Activated Partial Thrombo Time 31.2 seconds (26.0-38.0); INR 1.25 (0.86-1.15)
[2021-01-02 13:18] LABS: Troponin I 0.01 ng/mL (<0.03)
[2021-01-02 13:28] LABS: Albumin/Globulin Ratio 1.1 (1-3); C Reactive Protein 247.64 mg/L (<8.01); Calcium 9.3 mg/dL (8.6-10.3); EGFR African American 57.7 (>60); EGFR Non-African American 47.7 (>60); Globulin 3.7 g/dL (2-4); Total Bilirubin 0.4 mg/dL (0.2-1.0); Total Protein 7.7 g/dL (6.4-8.9)
[2021-01-02 14:46] LABS: Urine Bacteria Absent (Absent); Urine Red Blood Cell 3+(>10/hpf) (Absent); Urine Squamous Epithelial Cell Present (Absent); Urine White Blood Cell 3+(>20/hpf) (Absent)
[2021-01-02 14:47] LABS: Urine Appearance Cloudy; Urine Bilirubin Negative (Negative); Urine Blood 1+ (Negative); Urine Color Yellow; Urine Glucose Negative (Negative); Urine Ketones Negative (Negative); Urine Nitrite Negative (Negative); Urine Protein 1+(30 mg/dL) (Negative); Urine Specific Gravity 1.014 (1.002-1.030); Urine Urobilinogen Negative (Negative)
[2021-01-02 15:46] LABS: Urine Appearance Cloudy; Urine Bilirubin Negative (Negative); Urine Blood 2+ (Negative); Urine Color Yellow; Urine Glucose Negative (Negative); Urine Ketones Negative (Negative); Urine Nitrite Negative (Negative); Urine Protein 1+(30 mg/dL) (Negative); Urine Specific Gravity 1.013 (1.002-1.030); Urine Urobilinogen Negative (Negative)
[2021-01-02 15:50] LABS: Urine Bacteria Absent (Absent); Urine Red Blood Cell 3+(>10/hpf) (Absent); Urine White Blood Cell 3+(>20/hpf) (Absent)
[2021-01-02] MEDS ORDERED: Piperacillin/Tazobac ADVAN 3.375 GM in NS 0.9% 100 ml BAG 100 ML IV ONE (15:53)
[2021-01-02 17:34] LABS: Rapid COVID-19 Molecular Undetected (Undetected)
[2021-01-02] MEDS ORDERED: Ondansetron 4 mg VIAL 2 MG/ML 2 ml VIAL IV PRN (19:55)
[2021-01-02] MEDS ORDERED: Zosyn per Pharmacy NOTE FOLLOW UP SCH (20:00)
[2021-01-02] MEDS ORDERED: Dextrose 50% Syringe 50 ml 25 GM/50 ML SYRINGE IV PUSH PRN (20:06)
[2021-01-02] MEDS ORDERED: NS 0.9% 250 ml 250 ML IV ONE (20:44)
[2021-01-02] MEDS ORDERED: Iodixanol (CONTRAST) 320 MG/ML 100 ML SDV IV ONE (20:54)
[2021-01-02] MEDS ORDERED: ZOSYN 3.375 GM Q8H per EXTENDED INFUSION IV ONE (21:00)
[2021-01-02] MEDS: NS 0.9% 1000 ml BAG 1,000 ML IV SCH (23:01)
[2021-01-03 00:26] LABS: Rapid COVID-19 Molecular Undetected (Undetected)
[2021-01-03] MEDS: DULoxetine DR 30 mg CAP PO SCH ×2 (01:44→10:31)
[2021-01-03] MEDS: NS 0.9% 1000 ml BAG 1,000 ML IV SCH ×2 (01:44→14:39)
[2021-01-03] MEDS: ZOSYN 3.375 GM Q8H per EXTENDED INFUSION IV SCH ×3 (06:27→22:12)
[2021-01-03 06:49] LABS: ABS Eosinophils 0.2 10^3/ul (0-0.6); ABS Lymphocytes 0.7 10^3/ul (1.0-4.8); ABS Monocytes 0.9 10^3/ul (0-0.8); ABS Neutrophils 5.9 10^3/ul (1.5-7.7); Eosinophil % 2.9 %; Hematocrit 31 % (42-52); Hemoglobin 10.3 g/dL (14.0-18.0); Lymphocyte % 8.5 %; Mean Corpuscular HGB Conc 33 g/dL (31-36); Mean Corpuscular Hemoglobin 28 pg (27-31); Mean Corpuscular Volume 86 fL (80-94); Mean Platelet Volume 7.1 fL (7.4-10.4); Platelet Count 316 10^3/uL (150-450); Red Blood Count 3.64 10^6 /uL (4.18-5.48); Red Cell Distribution Width 15 % (10-15); White Blood Count 7.7 10^3/uL (3.5-10.8)
[2021-01-03 07:09] LABS: Albumin 3.5 g/dL (3.2-5.2); Albumin/Globulin Ratio 1.1 (1-3); Calcium 8.7 mg/dL (8.6-10.3); EGFR African American 83.4 (>60); EGFR Non-African American 68.9 (>60); Globulin 3.1 g/dL (2-4); Potassium 4.5 mmol/L (3.5-5.0); Total Bilirubin 0.3 mg/dL (0.2-1.0); Total Protein 6.6 g/dL (6.4-8.9)
[2021-01-03] MEDS: Mometasone/Formoter 200/5 MDI INH SCH ×2 (08:11→19:07)
[2021-01-03] MEDS ORDERED: Mometasone/Formoter 200/5 MDI INH SCH (09:00)
[2021-01-04] MEDS: NS 0.9% 1000 ml BAG 1,000 ML IV SCH ×2 (00:18→19:46)
[2021-01-04 05:42] LABS: ABS Eosinophils 0.7 10^3/ul (0-0.6); ABS Lymphocytes 1.3 10^3/ul (1.0-4.8); ABS Monocytes 0.8 10^3/ul (0-0.8); ABS Neutrophils 3.6 10^3/ul (1.5-7.7); Eosinophil % 10.4 %; Hematocrit 31 % (42-52); Lymphocyte % 19.8 %; Mean Corpuscular HGB Conc 32 g/dL (31-36); Mean Corpuscular Hemoglobin 28 pg (27-31); Mean Corpuscular Volume 87 fL (80-94); Mean Platelet Volume 7.3 fL (7.4-10.4); Nucleated Red Blood Cells % 0.1; Platelet Count 300 10^3/uL (150-450); Red Blood Count 3.54 10^6 /uL (4.18-5.48); Red Cell Distribution Width 15 % (10-15); White Blood Count 6.4 10^3/uL (3.5-10.8)
[2021-01-04] MEDS: ZOSYN 3.375 GM Q8H per EXTENDED INFUSION IV SCH (05:55)
[2021-01-04 06:01] LABS: Potassium 4.5 mmol/L (3.5-5.0)
[2021-01-04 06:02] LABS: Calcium 8.5 mg/dL (8.6-10.3); EGFR African American 99.8 (>60); EGFR Non-African American 82.5 (>60)
[2021-01-04] MEDS: Mometasone/Formoter 200/5 MDI INH SCH ×2 (07:15→19:08)
[2021-01-04] MEDS: DULoxetine DR 30 mg CAP PO SCH (08:47)
[2021-01-04] MEDS: Amoxicillin/Clavul 500/125 TAB (Augmentin 500 mg tab) PO SCH (19:55)
[2021-01-04 22:20] LABS: Folate 8.33 ng/mL (5.90-24.80)
[2021-01-05 05:32] LABS: ABS Eosinophils 0.8 10^3/ul (0-0.6); ABS Lymphocytes 1.2 10^3/ul (1.0-4.8); ABS Monocytes 0.7 10^3/ul (0-0.8); ABS Neutrophils 4.1 10^3/ul (1.5-7.7); Eosinophil % 11.4 %; Hematocrit 31 % (42-52); Hemoglobin 9.9 g/dL (14.0-18.0); Lymphocyte % 17.4 %; Mean Corpuscular HGB Conc 32 g/dL (31-36); Mean Corpuscular Hemoglobin 28 pg (27-31); Mean Corpuscular Volume 88 fL (80-94); Mean Platelet Volume 7.3 fL (7.4-10.4); Platelet Count 308 10^3/uL (150-450); Red Blood Count 3.56 10^6 /uL (4.18-5.48); Red Cell Distribution Width 15 % (10-15); White Blood Count 6.8 10^3/uL (3.5-10.8)
[2021-01-05] MEDS: Mometasone/Formoter 200/5 MDI INH SCH ×2 (08:04→19:11)
[2021-01-05] MEDS: DULoxetine DR 30 mg CAP PO SCH (08:57)
[2021-01-05] MEDS: Amoxicillin/Clavul 500/125 TAB (Augmentin 500 mg tab) PO SCH ×2 (08:58→20:57)
[2021-01-06] MEDS: Mometasone/Formoter 200/5 MDI INH SCH ×2 (07:04→19:01)
[2021-01-06] MEDS: Amoxicillin/Clavul 500/125 TAB (Augmentin 500 mg tab) PO SCH (08:14)
[2021-01-06] MEDS: DULoxetine DR 30 mg CAP PO SCH (08:14)
[2021-01-06 09:10] LABS: ABS Eosinophils 1.1 10^3/ul (0-0.6); ABS Neutrophils 13.8 10^3/ul (1.5-7.7); Eosinophil % 6.7 %; Hematocrit 31 % (42-52); Lymphocyte % 5.7 %; Mean Corpuscular HGB Conc 32 g/dL (31-36); Mean Corpuscular Hemoglobin 28 pg (27-31); Mean Corpuscular Volume 86 fL (80-94); Mean Platelet Volume 6.8 fL (7.4-10.4); Platelet Count 329 10^3/uL (150-450); Red Blood Count 3.63 10^6 /uL (4.18-5.48); Red Cell Distribution Width 15 % (10-15); White Blood Count 16.9 10^3/uL (3.5-10.8)
[2021-01-06] MEDS ORDERED: Piperacillin/Tazobac ADVAN 3.375 GM in NS 0.9% 100 ml BAG 100 ML IV ONE (09:22)
[2021-01-06 09:25] LABS: C Reactive Protein 97.2 mg/L (<8.01); Calcium 8.5 mg/dL (8.6-10.3); EGFR African American 101.1 (>60); EGFR Non-African American 83.5 (>60); Potassium 4.1 mmol/L (3.5-5.0)
[2021-01-06] MEDS ORDERED: Zosyn per Pharmacy NOTE FOLLOW UP SCH ×2 (10:00→11:00)
[2021-01-06] MEDS ORDERED: ZOSYN 3.375 GM x ONE DOSE over 30 miuntes IV (11:00)
[2021-01-06] MEDS: ZOSYN 3.375 GM Q8H per EXTENDED INFUSION IV SCH ×2 (16:45→23:18)
[2021-01-07 05:11] LABS: Urine Appearance Clear; Urine Bilirubin Negative (Negative); Urine Blood Negative (Negative); Urine Color Yellow; Urine Glucose Negative (Negative); Urine Ketones Negative (Negative); Urine Nitrite Negative (Negative); Urine Protein Negative (Negative); Urine Specific Gravity 1.013 (1.002-1.030); Urine Urobilinogen Negative (Negative)
[2021-01-07 07:11] LABS: ABS Basophils 0.1 10^3/ul (0-0.2); ABS Eosinophils 1.3 10^3/ul (0-0.6); ABS Lymphocytes 1.4 10^3/ul (1.0-4.8); ABS Neutrophils 10.3 10^3/ul (1.5-7.7); Eosinophil % 9.4 %; Hematocrit 29 % (42-52); Hemoglobin 9.6 g/dL (14.0-18.0); Lymphocyte % 9.6 %; Mean Corpuscular HGB Conc 33 g/dL (31-36); Mean Corpuscular Hemoglobin 28 pg (27-31); Mean Corpuscular Volume 85 fL (80-94); Platelet Count 307 10^3/uL (150-450); Red Cell Distribution Width 15 % (10-15); White Blood Count 14.2 10^3/uL (3.5-10.8)
[2021-01-07 07:30] LABS: Calcium 8.5 mg/dL (8.6-10.3); EGFR African American 99.8 (>60); EGFR Non-African American 82.5 (>60); Potassium 4.1 mmol/L (3.5-5.0)
[2021-01-07] MEDS: Mometasone/Formoter 200/5 MDI INH SCH ×2 (07:55→19:51)
[2021-01-07] MEDS: ZOSYN 3.375 GM Q8H per EXTENDED INFUSION IV SCH ×3 (09:18→23:21)
[2021-01-07] MEDS: DULoxetine DR 30 mg CAP PO SCH (09:26)
[2021-01-07 14:54] LABS: Total Iron Binding Capacity 245 mcg/dL (250-450); Transferrin 175 mg/dL (203-362)
[2021-01-07 14:56] LABS: Ferritin 459.4 ng/mL (24-336)
[2021-01-07 14:57] LABS: % Iron Saturation 8 % (15-55); Iron < 20 ug/dL (50-212); Unsaturated Iron Binding < 230 ug/dL
[2021-01-07] MEDS: Albuterol HFA INHALER 8 gm MDI INH PRN (19:56)
[2021-01-08] MEDS: Mometasone/Formoter 200/5 MDI INH SCH ×2 (08:01→19:54)
[2021-01-08] MEDS: Albuterol HFA INHALER 8 gm MDI INH PRN (08:02)
[2021-01-08 08:46] LABS: Calcium 8.7 mg/dL (8.6-10.3); EGFR African American 99.8 (>60); EGFR Non-African American 82.5 (>60); Potassium 4.3 mmol/L (3.5-5.0)
[2021-01-08] MEDS: ZOSYN 3.375 GM Q8H per EXTENDED INFUSION IV SCH ×3 (09:44→23:42)
[2021-01-08] MEDS: DULoxetine DR 30 mg CAP PO SCH (09:47)
[2021-01-08 10:21] LABS: ABS Eosinophils 1.2 10^3/ul (0-0.6); ABS Lymphocytes 1.2 10^3/ul (1.0-4.8); ABS Monocytes 0.7 10^3/ul (0-0.8); ABS Neutrophils 8.9 10^3/ul (1.5-7.7); Eosinophil % 9.7 %; Hematocrit 31 % (42-52); Lymphocyte % 9.9 %; Mean Corpuscular HGB Conc 32 g/dL (31-36); Mean Corpuscular Hemoglobin 28 pg (27-31); Mean Corpuscular Volume 87 fL (80-94); Mean Platelet Volume 7.1 fL (7.4-10.4); Platelet Count 347 10^3/uL (150-450); Red Blood Count 3.58 10^6 /uL (4.18-5.48); Red Cell Distribution Width 16 % (10-15)
[2021-01-09 07:10] LABS: Hematocrit 30 % (42-52); Mean Corpuscular HGB Conc 33 g/dL (31-36); Mean Corpuscular Hemoglobin 28 pg (27-31); Mean Corpuscular Volume 85 fL (80-94); Mean Platelet Volume 7.4 fL (7.4-10.4); Platelet Count 380 10^3/uL (150-450); Red Blood Count 3.51 10^6 /uL (4.18-5.48); Red Cell Distribution Width 15 % (10-15); White Blood Count 9.7 10^3/uL (3.5-10.8)
[2021-01-09 07:25] LABS: Calcium 8.8 mg/dL (8.6-10.3); EGFR African American 86.2 (>60); EGFR Non-African American 71.3 (>60); Potassium 4.4 mmol/L (3.5-5.0)
[2021-01-09] MEDS: ZOSYN 3.375 GM Q8H per EXTENDED INFUSION IV SCH ×2 (08:23→16:13)
[2021-01-09] MEDS: DULoxetine DR 30 mg CAP PO SCH (08:27)
[2021-01-09] MEDS: Mometasone/Formoter 200/5 MDI INH SCH ×2 (08:48→19:34)
[2021-01-09] MEDS: Polyethylene Glycol 3350 17 GM PACKET PO SCH (21:38)
[2021-01-10] MEDS: ZOSYN 3.375 GM Q8H per EXTENDED INFUSION IV SCH ×4 (00:08→23:19)
[2021-01-10 07:08] LABS: ABS Basophils 0.1 10^3/ul (0-0.2); ABS Eosinophils 0.8 10^3/ul (0-0.6); ABS Lymphocytes 1.8 10^3/ul (1.0-4.8); ABS Monocytes 0.9 10^3/ul (0-0.8); ABS Neutrophils 4.4 10^3/ul (1.5-7.7); Eosinophil % 10.5 %; Hematocrit 29 % (42-52); Hemoglobin 9.6 g/dL (14.0-18.0); Lymphocyte % 22.2 %; Mean Corpuscular HGB Conc 33 g/dL (31-36); Mean Corpuscular Hemoglobin 29 pg (27-31); Mean Corpuscular Volume 85 fL (80-94); Mean Platelet Volume 7.2 fL (7.4-10.4); Platelet Count 393 10^3/uL (150-450); Red Blood Count 3.38 10^6 /uL (4.18-5.48); Red Cell Distribution Width 16 % (10-15)
[2021-01-10] MEDS: Mometasone/Formoter 200/5 MDI INH SCH ×2 (07:17→19:50)
[2021-01-10 07:19] LABS: Calcium 8.5 mg/dL (8.6-10.3); EGFR African American 94.8 (>60); EGFR Non-African American 78.4 (>60); Potassium 4.5 mmol/L (3.5-5.0)
[2021-01-10] MEDS: Polyethylene Glycol 3350 17 GM PACKET PO SCH ×2 (08:03→21:23)
[2021-01-10] MEDS: DULoxetine DR 30 mg CAP PO SCH (08:05)
[2021-01-10 12:29] LABS: Rapid COVID-19 Molecular Undetected (Undetected)
[2021-01-11 05:30] LABS: ABS Basophils 0.1 10^3/ul (0-0.2); ABS Eosinophils 1.1 10^3/ul (0-0.6); ABS Lymphocytes 1.8 10^3/ul (1.0-4.8); ABS Monocytes 0.9 10^3/ul (0-0.8); ABS Neutrophils 6.2 10^3/ul (1.5-7.7); Eosinophil % 10.5 %; Hematocrit 29 % (42-52); Hemoglobin 9.8 g/dL (14.0-18.0); Lymphocyte % 17.6 %; Mean Corpuscular HGB Conc 33 g/dL (31-36); Mean Corpuscular Hemoglobin 29 pg (27-31); Mean Corpuscular Volume 86 fL (80-94); Mean Platelet Volume 6.9 fL (7.4-10.4); Platelet Count 426 10^3/uL (150-450); Red Blood Count 3.42 10^6 /uL (4.18-5.48); Red Cell Distribution Width 15 % (10-15); White Blood Count 10.1 10^3/uL (3.5-10.8)
[2021-01-11 05:49] LABS: Calcium 8.7 mg/dL (8.6-10.3); EGFR African American 90.3 (>60); EGFR Non-African American 74.7 (>60); Potassium 4.7 mmol/L (3.5-5.0)
[2021-01-11] MEDS: Mometasone/Formoter 200/5 MDI INH SCH (07:02)
[2021-01-11] MEDS: DULoxetine DR 30 mg CAP PO SCH (09:06)
[2021-01-11] MEDS: Polyethylene Glycol 3350 17 GM PACKET PO SCH (09:07)
[2021-01-11] MEDS: ZOSYN 3.375 GM Q8H per EXTENDED INFUSION IV SCH (09:23)
[2021-01-11 12:06] VITALS: BP 128/62
== END 2021-01-11 15:25 | DRG 871 ==
LOC: ED 11:55 → MED 19:55 → SUATTDRO 19:55 → MED 01-03 02:11 → MEDTELE 01-10 19:39
PROVIDERS: ADMIT Student in an Organized Health Care Education/Training Program; ATTEND Hospitalist

== ENCOUNTER 2021-01-21 14:50 | Inpatient (IN) ==
[2021-01-21 15:38] LABS: Hematocrit 35 % (42-52); Hemoglobin 10.5 g/dL (14.0-18.0); Mean Corpuscular HGB Conc 31 g/dL (31-36); Mean Corpuscular Hemoglobin 27 pg (27-31); Mean Corpuscular Volume 88 fL (80-94); Mean Platelet Volume 7.7 fL (7.4-10.4); Platelet Count 544 10^3/uL (150-450); Red Blood Count 3.91 10^6 /uL (4.18-5.48); Red Cell Distribution Width 16 % (10-15); White Blood Count 22.1 10^3/uL (3.5-10.8)
[2021-01-21 15:54] LABS: ABS Lymphocytes 0.8 10^3/ul (1.0-4.8); ABS Monocytes 0.9 10^3/ul (0-0.8); ABS Neutrophils 20.4 10^3/ul (1.5-7.7); ALT 21 U/L (7-52); AST 19 U/L (13-39); Albumin/Globulin Ratio 1.4 (1-3); Alkaline Phosphatase 125 U/L (35-149); Blood Urea Nitrogen 107 mg/dL (6-24); CO2 Carbon Dioxide 15 mmol/L (22-32); Calcium 8.7 mg/dL (8.6-10.3); Chloride 95 mmol/L (101-111); EGFR African American 5.7 (>60); EGFR Non-African American 4.7 (>60); Globulin 2.9 g/dL (2-4); Glucose 111 mg/dL (70-100); Lymphocyte % 3.7 %; Sodium 135 mmol/L (135-145); Total Protein 6.9 g/dL (6.4-8.9)
[2021-01-21 15:59] LABS: Urine Appearance Cloudy; Urine Bilirubin Negative (Negative); Urine Blood 1+ (Negative); Urine Color Yellow; Urine Glucose Negative (Negative); Urine Ketones Negative (Negative); Urine Nitrite Negative (Negative); Urine Protein 2+(100 mg/dL) (Negative); Urine Specific Gravity 1.016 (1.002-1.030); Urine Urobilinogen Negative (Negative)
[2021-01-21 16:04] LABS: Activated Partial Thrombo Time 30.7 seconds (26.0-38.0); INR 1.17 (0.86-1.15)
[2021-01-21 16:05] LABS: Creatine Kinase 491 U/L (10-223)
[2021-01-21 16:10] LABS: Anion Gap 25 mmol/L (2-11); Potassium 8.4 mmol/L (3.5-5.0)
[2021-01-21] MEDS ORDERED: Sodium Bicarbonate 8.4% SYR 50 ml SYRINGE IV ONE (16:10)
[2021-01-21] MEDS ORDERED: Calcium Gluconate 1 GM in NS 0.9% 50 ML 50 ML IV ONE (16:10)
[2021-01-21] MEDS ORDERED: Dextrose 50% Syringe 50 ml 25 GM/50 ML SYRINGE IV PUSH ONE (16:10)
[2021-01-21 16:11] LABS: Troponin I 0.04 ng/mL (<0.03)
[2021-01-21] MEDS ORDERED: SODIUM ZIRCONIUM CYCLOSILICATE 10 GM PACKET PO ONE (16:11)
[2021-01-21] MEDS ORDERED: Vancomycin 1,000 MG in NS 0.9% 250 ml 250 ML IVPB ONE (16:12)
[2021-01-21] MEDS ORDERED: Cefepime 1 GM in Dextrose 1 GM/50 ML BAG IV ONE (16:12)
[2021-01-21] MEDS ORDERED: CALCIUM GLUCONATE 1GM/50ML NS 1 GM/50 ML BAG IV ONE (16:30)
[2021-01-21 16:37] LABS: Urine Bacteria Absent (Absent); Urine Red Blood Cell 2+(6-10/hpf) (Absent); Urine White Blood Cell 1+(6-10/hpf) (Absent)
[2021-01-21] MEDS ORDERED: fentaNYL 100 mcg/2 ml 50 MCG/ML VIAL IV SLOW PU ONE (17:14)
[2021-01-21] MEDS ORDERED: LORazepam 2 mg VIAL 1 ml IV PUSH PRN (17:24)
[2021-01-21] MEDS ORDERED: Lorazepam PYXIS KEY PRN (17:24)
[2021-01-21] MEDS ORDERED: Atropine 1% (ORAL/SL) 15 ML BTL SL PRN (17:29)
[2021-01-21] MEDS ORDERED: Ondansetron 4 mg VIAL 2 MG/ML 2 ml VIAL IV ONE (18:40)
[2021-01-21 20:36] VITALS: BP 85/30
== END 2021-01-22 02:00 | disposition expired | DRG 951 ==
LOC: ED 14:50 → MED 17:24
PROVIDERS: ADMIT Hospitalist; ATTEND Hospitalist